=== PATIENT | female | born 1975 | race Caucasian/White ===

== ENCOUNTER 2017-04-26 09:55 | Emergency (ER) | payer BC ==
[~2017-04-26] VITALS: Ht 167.6 cm; Wt 81.6 kg
--- NOTE | 2017-04-26 10:18 | Urgent Treatment Center Report ---
History of Present Issue Date/Time Seen by Provider 04/26/17 1018 Visit Reason Pt arrived:Walked Presenting Problem:PT C/O NAUSEA AND CHEST CONGESTION ALONG WITH A RUBIO SINCE YESTERDAY Location if Accident: Onset of symptoms date/time:/ or onset unknown for:MEDICAL HX UNKNOWN Have you (or family members/close friends) recently traveled outside the [place]? N If Yes, where/when: Have you had exposure to infectious disease within the past month? TB? Other? Specify: c/o not feeling well. "Not sure if it is strep or not but my throat doesn't hurt and I don't have a fever". Woke up yesterday "just not feeling good". Sore throat and headache then. Sore throat has since resolved. Nausea, worse w/ movement. Achy throughout trunk, + chills. Mild intermittent cough "but I smoke and not sure if related to that because hasn't changed really". son tested + strep several days ago. pt reports hx of enlarged tonsils "but not sure how big ". No treatment since onset of symptoms. Source patient Exam Limitations no limitations ALLERGIES Coded Allergies: No Known Allergies (04/26/17) Home Medications Reported Medications No Known Home Medications History Medical History General CAD? No Angina: No [place]: No Hypertension? No Hyperlipidemia? No CHF? No DVT? No PE? No COPD? No Asthma? No Anemia? No GERD? No Gastric ulcers? No GI Bleed? No Hernia? No Thyroid Problems? No Hypothyroidism? No CVA? No Seizures? No Diabetes? No Renal Insuffiency? No UTI? No Stones? No BPH? No GB Disease: No Nephritic Syndrome? No Asplenia? No Hepatitis? No Sickle Cell Disease? No Arthritis? No Migraines? No Cataracts? No Glaucoma? No MRSA? No HIV? No TB? No Anxiety? No Depression? No Cancer? No More? No Immunization HX DT/Tetanus Unknown Surgical Hx Previous Surgery?Y CYST REMOVAL 2002 Family History Family HX Diabetes No CAD No Hypertension No Hyperlipidemia No Cancer Yes TB No Social History Smoking Hx Smoker: Current Every Day Smoker Tobacco: Yes Type Cigarettes Packs/day < 1 Pack Alcohol Alcohol: No Review of Systems All Other Systems Reviewed and Negative Constitutional see HPI Eyes denies drainage ENT see HPI, throat swelling ("but I can eat and drink"). denies: ear pain, nose discharge, nose congestion. Respiratory denies shortness of breath, denies stridor, denies wheezing Cardiovascular denies palpitations Gastrointestinal denies abdominal pain, denies diarrhea, denies vomiting Musculoskeletal see HPI Skin denies rash Psychiatric/Neurological see HPI Physical Exam Vital Signs Vital Signs Date Time Temp Pulse Resp B/P Pulse O2 O2 Flow FiO2 Ox Delivery Rate 04/26 1002 97.9 93 20 126/81 98 General Appearance normal appearance, no apparent distress Eye Exam - bilateral eye normal exam Ear, Nose, Throat tadeo EACs, TMs, nares all normal; tonsils 3+ tadeo w/o exudate of erythema, no pharyngeal erythema Neck normal inspection, non-tender, supple, full range of motion Respiratory Status No: respiratory distress, productive cough, non productive cough. Lung Sounds anterior: lungs clear. posterior: lungs clear. bilateral: lungs clear. Cardiovascular regular rate/rhythm, no peripheral edema, no murmur Gastrointestinal normal bowel sounds, non tender, soft Neurologic alert, oriented x 3 Skin normal color, warm/dry Lymphatic no adenopathy Medical Decision Making LABS/Meds/Orders Pt receiving controlled substance in ED? No Results/Orders Laboratory Tests 04/26/17 0951: Group A Strep Screen NOT DETECTED Current Medication Orders Sig/Jan Start time Last Medication Dose Route Stop Time Status Admin Ondansetron HCl 0 .STK-MED ONE 04/26 1037 DC .ROUTE Ondansetron HCl 4 MG ONCE ONE 04/26 1030 DC 04/26 SL 04/26 1031 1038 Orders Procedure Date/time Status [facility] STREP SCREEN 04/26 1031 Complete Progress [facility] Progress Notes 1 Date 04/26/17 Time 1107 Comment Went in to review discharge POC w/ pt. pt asked "so does this virus make your left arm and left side of your chest hurt?" Went on to further evaluate chest pain initially reports as "body aches in trunk". Started yesterday. Initially left upper arm. Radiating now to left anterior chest. Constant achy pressure, sharp at times. General malaise "that I just can't put my finger on". Nauseated, worse w/ movement. "I feel like i haven't slept in 3 days but it is weird, I have." Denies neck or jaw pain. Thought she felt palpitations yesterday but not sure. [facility] Progress Notes 2 Date 04/26/17 Time 1110 Comment Report called to RAMANA Lovelace RN. Sent to room 6 in ER. Departure Departure Time of Disposition 1110 Disposition Still a Patient Clinical Impression Primary Impression: Exposure to strep throat Condition STABLE Prescriptions Current Visit Scripts No Known Home Medications at 1112 in clinic. Discharge Counseling Counseled pt/family regarding diagnosis, test results, medications/RX, home care, follow up needs Prescriptions Current Visit Scripts No Known Home Medications
--- NOTE | 2017-04-26 10:18 | Urgent Treatment Center Report ---
History of Present Issue Date/Time Seen by Provider 04/26/17 1018 Visit Reason Pt arrived:Walked Presenting Problem:PT C/O NAUSEA AND CHEST CONGESTION ALONG WITH A RUBIO SINCE YESTERDAY Location if Accident: Onset of symptoms date/time:/ or onset unknown for:MEDICAL HX UNKNOWN Have you (or family members/close friends) recently traveled outside the [place]? N If Yes, where/when: Have you had exposure to infectious disease within the past month? TB? Other? Specify: c/o not feeling well. "Not sure if it is strep or not but my throat doesn't hurt and I don't have a fever". Woke up yesterday "just not feeling good". Sore throat and headache then. Sore throat has since resolved. Nausea, worse w/ movement. Achy throughout trunk, + chills. Mild intermittent cough "but I smoke and not sure if related to that because hasn't changed really". son tested + strep several days ago. pt reports hx of enlarged tonsils "but not sure how big ". No treatment since onset of symptoms. Source patient Exam Limitations no limitations ALLERGIES Coded Allergies: No Known Allergies (04/26/17) Home Medications Reported Medications No Known Home Medications History Medical History General CAD? No Angina: No [place]: No Hypertension? No Hyperlipidemia? No CHF? No DVT? No PE? No COPD? No Asthma? No Anemia? No GERD? No Gastric ulcers? No GI Bleed? No Hernia? No Thyroid Problems? No Hypothyroidism? No CVA? No Seizures? No Diabetes? No Renal Insuffiency? No UTI? No Stones? No BPH? No GB Disease: No Nephritic Syndrome? No Asplenia? No Hepatitis? No Sickle Cell Disease? No Arthritis? No Migraines? No Cataracts? No Glaucoma? No MRSA? No HIV? No TB? No Anxiety? No Depression? No Cancer? No More? No Immunization HX DT/Tetanus Unknown Surgical Hx Previous Surgery?Y CYST REMOVAL 2002 Family History Family HX Diabetes No CAD No Hypertension No Hyperlipidemia No Cancer Yes TB No Social History Smoking Hx Smoker: Current Every Day Smoker Tobacco: Yes Type Cigarettes Packs/day < 1 Pack Alcohol Alcohol: No Review of Systems All Other Systems Reviewed and Negative Constitutional see HPI Eyes denies drainage ENT see HPI, throat swelling ("but I can eat and drink"). denies: ear pain, nose discharge, nose congestion. Respiratory denies shortness of breath, denies stridor, denies wheezing Cardiovascular denies palpitations Gastrointestinal denies abdominal pain, denies diarrhea, denies vomiting Musculoskeletal see HPI Skin denies rash Psychiatric/Neurological see HPI Physical Exam Vital Signs Vital Signs Date Time Temp Pulse Resp B/P Pulse O2 O2 Flow FiO2 Ox Delivery Rate 04/26 1002 97.9 93 20 126/81 98 General Appearance normal appearance, no apparent distress Eye Exam - bilateral eye normal exam Ear, Nose, Throat tadeo EACs, TMs, nares all normal; tonsils 3+ tadeo w/o exudate of erythema, no pharyngeal erythema Neck normal inspection, non-tender, supple, full range of motion Respiratory Status No: respiratory distress, productive cough, non productive cough. Lung Sounds anterior: lungs clear. posterior: lungs clear. bilateral: lungs clear. Cardiovascular regular rate/rhythm, no peripheral edema, no murmur Gastrointestinal normal bowel sounds, non tender, soft Neurologic alert, oriented x 3 Skin normal color, warm/dry Lymphatic no adenopathy Medical Decision Making LABS/Meds/Orders Pt receiving controlled substance in ED? No Results/Orders Laboratory Tests 04/26/17 0951: Group A Strep Screen NOT DETECTED Current Medication Orders Sig/Jan Start time Last Medication Dose Route Stop Time Status Admin Ondansetron HCl 0 .STK-MED ONE 04/26 1037 DC .ROUTE Ondansetron HCl 4 MG ONCE ONE 04/26 1030 DC 04/26 SL 04/26 1031 1038 Orders Procedure Date/time Status [facility] STREP SCREEN 04/26 1031 Complete Progress [facility] Progress Notes 1 Date 04/26/17 Time 1107 Comment Went in to review discharge POC w/ pt. pt asked "so does this virus make your left arm and left side of your chest hurt?" Went on to further evaluate chest pain initially reports as "body aches in trunk". Started yesterday. Initially left upper arm. Radiating now to left anterior chest. Constant achy pressure, sharp at times. General malaise "that I just can't put my finger on". Nauseated, worse w/ movement. "I feel like i haven't slept in 3 days but it is weird, I have." Denies neck or jaw pain. Thought she felt palpitations yesterday but not sure. [facility] Progress Notes 2 Date 04/26/17 Time 1110 Comment Report called to RAMANA Lovelace RN. Sent to room 6 in ER. Departure Departure Time of Disposition 1110 Disposition Still a Patient Clinical Impression Primary Impression: Exposure to strep throat Condition STABLE Prescriptions Current Visit Scripts No Known Home Medications at 1112 in clinic. Discharge Counseling Counseled pt/family regarding diagnosis, test results, medications/RX, home care, follow up needs Prescriptions Current Visit Scripts No Known Home Medications
--- NOTE | 2017-04-26 11:40 | Emergency Room Report ---
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 N Clinical Suspician of Infection? N Mental Status: 1 - Regular (Normal Baseline) Sepsis Risk:Possible Sepsis Risk Have you (or family members/close friends) recently traveled outside the [place]? N If Yes, where/when: Have you had exposure to infectious disease within the past month? N TB? Other? Specify: 41 years old white female who woke up yesterday with sore throat. Today she is feeling chest congestion, headache, sense of chest pressure. He underwent a negative strep and a UTC and she was sent here for evaluation. Electrocardiogram sinus tach 10 2/m there is no acute findings. She is a smoker and she complained sense of chest heaviness that started yesterday radiating to the LEFT arm sharp in character and worse with deep breath and cough. Source patient, RN notes reviewed Exam Limitations no limitations ALLERGIES Coded Allergies: No Known Allergies (04/26/17) Home Medications Reported Medications No Known Home Medications History Medical History General CAD? No Angina: No [place]: No Hypertension? No Hyperlipidemia? No CHF? No DVT? No PE? No COPD? No Asthma? No Anemia? No GERD? No Gastric ulcers? No GI Bleed? No Hernia? No Thyroid Problems? No Hypothyroidism? No CVA? No Seizures? No Diabetes? No Renal Insuffiency? No End Stage Renal Disease? No UTI? No Stones? No BPH? No GB Disease: No Nephritic Syndrome? No Asplenia? No Hepatitis? No Sickle Cell Disease? No Arthritis? No Migraines? No Cataracts? No Glaucoma? No MRSA? No HIV? No TB? No Anxiety? No Depression? No Cancer? No More? No Immunization Hx DT/Tetanus Unknown Surgical Hx Previous Surgery?Y CYST REMOVAL 2002 [employer] Hx LMP N/A Family History Family Hx Diabetes No CAD No Hypertension No Hyperlipidemia No Cancer Yes TB No Social History Smoking Hx Smoker: Current Every Day Smoker Tobacco: Yes Type Cigarettes Packs/day < 1 Pack Alcohol Alcohol: No Review of Systems All Other Systems Reviewed and Negative Eyes no symptoms reported ENT see HPI, throat pain. Respiratory see HPI, cough Cardiovascular see HPI, chest pain Gastrointestinal see HPI, nausea Genitourinary no symptoms reported. Musculoskeletal see HPI Skin no symptoms reported Psychiatric/Neurological no symptoms reported Physical Exam Vital Signs Vital Signs Date Time Temp Pulse Resp B/P Pulse O2 O2 Flow FiO2 Ox Delivery Rate 04/26 1119 97.9 93 20 126/81 98 04/26 1002 97.9 93 20 126/81 98 General Appearance normal appearance, WD/WN Eye Exam - bilateral eye normal exam, bilateral eye PERRL, bilateral eye EOMI Ear, Nose, Throat hearing grossly normal, normal ENT inspection Neck normal inspection, non-tender, supple, full range of motion Respiratory Status Yes: trachea midline, chest symmetrical, non tender chest. No: respiratory distress. Lung Sounds bilateral: normal breath sounds, lungs clear. 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 No Results/Orders Laboratory Tests 04/26/17 1125: Sodium 137, Potassium 3.6, Chloride 104, Carbon Dioxide 25, BUN 7, Creatinine 0.8, Estimated Creat Clear 120, Estimated GFR (MDRD) 79, Glucose 98, Calcium 9.1 , Total Bilirubin 0.5, AST 13 L, ALT 31, Alkaline Phosphatase 107, Troponin I < 0.02, Total Protein 8.6 H, Albumin 4.2, Globulin 4.4 H, Albumin/Globulin Ratio 1.0 L, D-Dimer 115, WBC 11.3 H, RBC 4.87, Hgb 15.6, Hct 47.0, MCV 96.6, RDW 15.3, Plt Count 314, Gran % 69.0, Gran # 7.8, Lymphocytes % 27.3, Monocytes % 3.7, Lymphocytes # 3.1, Monocytes # 0.4, PUBS MCHC 33.2, MCH 32.0 H 04/26/17 0951: Group A Strep Screen NOT DETECTED Current Medication Orders Sig/Jan Start time Last Medication Dose Route Stop Time Status Admin Albuterol/Ipratropium 0 .STK-MED ONE 04/26 1201 DC INH Albuterol/Ipratropium 3 ML ONCE ONE 04/26 1145 DC 04/26 INH 04/26 1146 1202 Ondansetron HCl 0 .STK-MED ONE 04/26 1037 DC .ROUTE Ondansetron HCl 4 MG ONCE ONE 04/26 1030 DC 04/26 SL 04/26 1031 1038 Orders Procedure Date/time Status RT REQUEST DUONEB 04/26 1142 Active CHEST(2 VIEWS-NOT PORTABLE) 04/26 1142 Active TROPONIN I 04/26 1142 Complete D-DIMER 04/26 1142 Complete CBC WITH AUTO DIFF 04/26 1142 Complete CHEM 12 PROFILE 04/26 1142 Complete UTC STREP SCREEN 04/26 1031 Complete CM/EKG CM/EKG EKG sinus tachycardia 102/minutes, baseline artifacts, no acute findings. XRAY/CT/US XRAY/CT/US XRAY chest XR interpretation by reviewed by me Xray Results no infiltrates Departure Departure Time of Disposition 1228 Disposition DC/XFER from ER to [facility] Clinical Impression Primary Impression: Exposure to strep throat Secondary Impressions: Atypical chest pain, Cough, Tobacco use, Upper respiratory infection Condition STABLE Referrals Bishnu MARC,A.C. (Family) Additional Instructions The remianed stable and was chest pain free. I reviewed her labs she was negative troponin and dimer. she received a duoneb with improvement. I will start her on antibiotics and advised her for daily aspirin. I called [facility] hightower for out patient stress tomorrow with Dr Landry. The patietn was instructed if sx return to come back Discharge Counseling Counseled pt/family regarding diagnosis, test results, medications/RX, home care, follow up needs Prescriptions Current Visit Scripts Aspirin (Aspirin Ec) 325 MG PO DAILY #30 ECT Azithromycin (Zithromycin (Z-MARGAUX) 250MG Tab) 250 MG PO DAILY #6 TAB Benzonatate (Tessalon Perle) 100 MG PO Q4HP PRN cough #30 SGL ED Critical Care Critical Care No If Critical Care minutes are documented, the time involved in the performance of seperately reportable procedures was not counted toward critical care time documented. I directly delivered medical care to this critically ill and/or injured patient. Timely evaluation and treatment was necessary to address the significant organ system(s) dysfunction present in this patient. at 1234
[2017-04-26 11:51] LABS: HEMOGLOBIN 15.6 g/dL (12.2-16.2); LYMPH # 3.1 K/mm3 (0.7-4.5); LYMPH % 27.3 % (10-50.0)
[2017-04-26 11:59] LABS: BUN 7 mg/dL (7-18)
[2017-04-26 12:09] LABS: GFR (ESTIMATED) 79 ML/MIN (59-)
[2017-04-26] MEDS ORDERED: ZITHROMAX Z PA250 MG PO (12:33)
[2017-04-26] MEDS ORDERED: ASPIRIN EC325 M1 PO (12:33)
[2017-04-26] MEDS ORDERED: TESSALON PERLE100 M1 PO (12:33)
[2017-04-26 14:09] VITALS: BP 123/67
--- NOTE | 2017-04-26 16:06 | RADIOLOGY REPORT PS360 ---
CHEST(2 VIEWS-NOT PORTABLE) HISTORY: Chest pain and cough cp and couph ORDERING PHYSICIAN: Emily Coats MD PATIENT AGE: 41 years COMPARISON: None available FINDINGS: The cardiomediastinal silhouette and pulmonary vascularity are within normal limits. The lungs are clear without infiltrates, suspicious nodules, or pleural effusions. No acute bony abnormalities. IMPRESSION: Negative chest, no acute finding
== END 2017-04-26 14:10 | disposition home or self-care (01) ==
LOC: UTC 09:55 → ER 09:58 → UTC 09:58 → ER 09:58
PROVIDERS: Emergency Medicine
DX: R07.89 Other chest pain (principal); J06.9 Acute upper respiratory infection, unspecified; F17.210 Nicotine dependence, cigarettes, uncomplicated

== ENCOUNTER → 2017-04-27 | Outpatient (CLI) | payer BC | LOC: RT 08:00 | DX: R07.9 Chest pain, unspecified (principal) ==

== ENCOUNTER → 2017-04-30 | Outpatient (CLI) | payer BC | LOC: LAB 11:11 | DX: R07.9 Chest pain, unspecified (principal); R11.0 Nausea ==

== ENCOUNTER 2017-05-08 22:37 | Observation (INO) | payer BC ==
[~2017-05-08] VITALS: Ht 167.6 cm; Wt 82.6 kg
[~2017-05-08 22:37] MED LIST: ASPIRIN EC325 M1 PO; TESSALON PERLE100 M1 PO; ZITHROMAX Z PA250 MG PO
[2017-05-08 22:38] VITALS: BP 155/95
[2017-05-08] MEDS ORDERED: AMLO5TAB PO (22:47)
[2017-05-08 22:51] LABS: LYMPH # 3.8 K/mm3 (0.7-4.5); LYMPH % 34.9 % (10-50.0)
--- NOTE | 2017-05-08 22:51 | Emergency Room Report ---
See Addendum History of Present Illness Time Seen by [id number] Presenting Problem in Triage Pt arrived:Walked Presenting Problem:C/O LEFT CHEST PAIN ON AND OFF X [address] WEEK. WAS SEEN BY DR ARELLANO LAST WEEK AND STARTED ON AMLODIPINE. MARIA D HAS CHEST PAIN, NAUSEA NEAR SYNCOPAL EPISODE TO HAVE CORONARY CT AND ECHO ON SUNDAY AND SUNDAY Onset of symptoms date/time:/ or onset unknown for:MEDICAL HX UNKNOWN Treatment Prior to Arrival: SEEN BY KATHY OROURKE APRN AND DR ARELLANO KITCHEN HAND Provided by:PHYSICIAN Sepsis Risk Assessment: Temp: 98.8 B/P: 126/85 MAP: 115 Pulse: 93 Resp: 20 Recent fever? N Clinical Suspician of Infection? N Mental Status: 1 - Regular (Normal Baseline) Sepsis Risk:Possible Sepsis Risk Have you (or family members/close friends) recently traveled outside the [place]? N If Yes, where/when: Have you had exposure to infectious disease within the past month? N TB? Other? Specify: Source patient, RN notes reviewed, family, old records Exam Limitations no limitations Comment pt with episodes of chest pain which is described as pressure- she has seen pcp and card with gxt ok but has inc episodes of pain with pos fh and tob use - episodes at rest and with slight exertion Cardiac Chest Pain Chest pain indicative of cardiac Yes Timing/Duration 1-3 hours, intermittent Severity/Quality moderate, pressure Location central Chest Pain Radiation no radiation Activities at Onset strenuous activity Nitro Today/Relief no nitro taken today, provided at home Aspirin Treatment Today 325 mg x 1 Beta ryder treatment today no beta ryder taken Cardiac risk factors + cardiovascular disease, + family history Timing/Duration this evening Severity moderate ALLERGIES Coded Allergies: No Known Allergies (04/26/17) Home Medications Active Scripts Aspirin (Aspirin Ec) 325 MG PO DAILY #30 ECT Prov: 04/26/17 Reported Medications Amlodipine Besylate (Amlodipine) 5 MG PO DAILY History Medical History General CAD? No Angina: No [place]: No Hypertension? No Hyperlipidemia? No CHF? No DVT? No PE? No COPD? No Asthma? No Anemia? No GERD? No Gastric ulcers? No GI Bleed? No Hernia? No Thyroid Problems? No Hypothyroidism? No CVA? No Seizures? No Diabetes? No Renal Insuffiency? No End Stage Renal Disease? No UTI? No Stones? No BPH? No GB Disease: No Nephritic Syndrome? No Asplenia? No Hepatitis? No Sickle Cell Disease? No Arthritis? No Migraines? No Cataracts? No Glaucoma? No MRSA? No HIV? No TB? No Anxiety? No Depression? No Cancer? No More? No Immunization Hx DT/Tetanus Unknown Surgical Hx Previous Surgery?Y CYST REMOVAL 2002 D AND C [employer] Hx LMP 1 Week Ago Family History Family Hx Diabetes No CAD No Hypertension No Hyperlipidemia No Cancer Yes TB No Social History Smoking Hx Smoker: Current Every Day Smoker Tobacco: Yes Type Cigarettes Packs/day < 1 Pack Alcohol Alcohol: No Drugs none Review of Systems All Other Systems Reviewed and Negative Constitutional denies fever Eyes denies drainage ENT denies: ear pain, epistaxis, throat pain. Respiratory denies cough, denies shortness of breath, denies wheezing Cardiovascular denies chest pain, denies syncope Gastrointestinal denies abdominal pain, denies vomiting Genitourinary denies: dysuria, frequency, hesitancy, hematuria. Musculoskeletal denies back pain, denies joint pain, denies joint swelling, denies neck pain Skin denies rash Psychiatric/Neurological denies headache, denies seizure Physical Exam Vital Signs Vital Signs Date Time Temp Pulse Resp B/P Pulse O2 O2 Flow FiO2 Ox Delivery Rate 05/08 2333 98.2 77 20 121/50 98 05/08 2248 98.8 93 20 126/85 100 05/08 2238 98.8 110 20 155/95 100 - WBC >12,000 or <4,000 or 10% bands? 2 or more SIRS Criteria Met? B/P:121/50 MAP:115 Creatinine >2.0? UA output<0.5ml/kg/hr for 2 hrs? Platelet count >100,000? Lactate >2.0mmol/1? INR >1.2 or PTT > than 60 sec? Evidence of Organ Dysfunction? Provider documented clinical suspician of infection? N Sepsis Criteria Count: 2 Sepsis Risk: General Appearance no apparent distress Eye Exam - bilateral eye PERRL, bilateral eye EOMI Ear, Nose, Throat normal ENT inspection Neck supple Respiratory Status No: respiratory distress. Lung Sounds bilateral: lungs clear. 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 No Results/Orders Laboratory Tests 05/08/170: Sodium 139, Potassium 3.7, Chloride 101, Carbon Dioxide 28, BUN 12, Creatinine 0.9, Estimated Creat Clear 107, Estimated GFR (MDRD) 69, Glucose 95, Calcium 9.7 , Total Bilirubin 0.3, AST 12 L, ALT 26, Alkaline Phosphatase 115, Creatine Kinase 60, CK-MB (CK-2) Rel Index 0.8, CK and CKMB Interp < 0.5, Troponin I < 0.02, Total Protein 8.4 H, Albumin 4.2, Globulin 4.2 H, Albumin/Globulin Ratio 1.0 L, WBC 11.0 H, RBC 4.62, Hgb 15.0, Hct 43.7, MCV 94.6, RDW 12.7, Plt Count 355, MPV 7.8, Gran % 57.8, Gran # 6.4, Lymphocytes % 34.9, Monocytes % 5.2, Eosinophils % 1.4, Basophils % 0.8, Lymphocytes # 3.8, Monocytes # 0.6, Eosinophils # 0.2, Basophils # 0.1, PUBS MCHC 34.5, MCH 32.6 H Current Medication Orders Sig/Jan Start time Last Medication Dose Route Stop Time Status Admin Nitroglycerin 0 .STK-MED ONE 05/08 2352 DC .ROUTE Orders Procedure Date/time Status Decision to admit 05/08 2353 Active ELECTROCARDIOGRAM REQUEST 05/08 2242 Active IV SALINE LOCK 05/08 2242 Active BUSINESS PROCESS EXPERT 05/08 2242 Active CBC WITH AUTO DIFF 05/08 2242 Complete CARDIAC ENZYMES 05/08 2242 Complete CHEM 12 PROFILE 05/08 2242 Complete 12 LEAD EKG-KADEN (INITIAL) 05/08 UN Active CM/EKG CM/oil gauger Rhythm Sinus Tachycardia EKG compared w/(date of old), non-spec. ST/Twave chgs XRAY/CT/US XRAY/CT/US XRAY chest XR interpretation by reviewed by me Xray Results normal/NAD Departure Departure Time of Disposition 0005 Disposition Still a Patient Clinical Impression Primary Impression: Chest pain Qualifiers: Chest pain type: precordial pain Qualified Code: R07.2 - Precordial pain Condition STABLE Referrals Toya Goetz MD. discussed with dr arellano ED Critical Care Critical Care No at 0014
--- NOTE | 2017-05-08 22:51 | Emergency Room Report ---
See Addendum History of Present Illness Time Seen by [id number] Presenting Problem in Triage Pt arrived:Walked Presenting Problem:C/O LEFT CHEST PAIN ON AND OFF X 1 WEEK. WAS SEEN BY [address] ARELLANO LAST WEEK AND STARTED ON AMLODIPINE. MARIA D HAS CHEST PAIN, NAUSEA NEAR SYNCOPAL EPISODE TO HAVE CORONARY CT AND ECHO ON SUNDAY AND SUNDAY Onset of symptoms date/time:/ or onset unknown for:MEDICAL HX UNKNOWN Treatment Prior to Arrival: SEEN BY KATHY OROURKE APRN AND DR ARELLANO GRIDDLE ATTENDANT Provided by:PHYSICIAN Sepsis Risk Assessment: Temp: 98.8 B/P: 126/85 MAP: 115 Pulse: 93 Resp: 20 Recent fever? N Clinical Suspician of Infection? N Mental Status: 1 - Regular (Normal Baseline) Sepsis Risk:Possible Sepsis Risk Have you (or family members/close friends) recently traveled outside the [place]? N If Yes, where/when: Have you had exposure to infectious disease within the past month? N TB? Other? Specify: Source patient, RN notes reviewed, family, old records Exam Limitations no limitations Comment pt with episodes of chest pain which is described as pressure- she has seen pcp and card with gxt ok but has inc episodes of pain with pos fh and tob use - episodes at rest and with slight exertion Cardiac Chest Pain Chest pain indicative of cardiac Yes Timing/Duration 1-3 hours, intermittent Severity/Quality moderate, pressure Location central Chest Pain Radiation no radiation Activities at Onset strenuous activity Nitro Today/Relief no nitro taken today, provided at home Aspirin Treatment Today 325 mg x 1 Beta ryder treatment today no beta ryder taken Cardiac risk factors + cardiovascular disease, + family history Timing/Duration this evening Severity moderate ALLERGIES Coded Allergies: No Known Allergies (04/26/17) Home Medications Active Scripts Aspirin (Aspirin Ec) 325 MG PO DAILY #30 ECT Prov: 04/26/17 Reported Medications Amlodipine Besylate (Amlodipine) 5 MG PO DAILY History Medical History General CAD? No Angina: No AR: No Hypertension? No Hyperlipidemia? No CHF? No DVT? No PE? No COPD? No Asthma? No Anemia? No GERD? No Gastric ulcers? No GI Bleed? No Hernia? No Thyroid Problems? No Hypothyroidism? No CVA? No Seizures? No Diabetes? No Renal Insuffiency? No End Stage Renal Disease? No UTI? No Stones? No BPH? No GB Disease: No Nephritic Syndrome? No Asplenia? No Hepatitis? No Sickle Cell Disease? No Arthritis? No Migraines? No Cataracts? No Glaucoma? No MRSA? No HIV? No TB? No Anxiety? No Depression? No Cancer? No More? 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 Respiratory denies cough, denies shortness of breath, denies wheezing Cardiovascular denies chest pain, denies syncope Gastrointestinal denies abdominal pain, denies vomiting Genitourinary denies: dysuria, frequency, hesitancy, hematuria. Musculoskeletal denies back pain, denies joint pain, denies joint swelling, denies neck pain Skin denies rash Psychiatric/Neurological denies headache, denies seizure Physical Exam Vital Signs Vital Signs Date Time Temp Pulse Resp B/P Pulse O2 O2 Flow FiO2 Ox Delivery Rate 05/08 2333 98.2 77 20 121/50 98 05/08 2248 98.8 93 20 126/85 100 05/08 2238 98.8 110 20 155/95 100 - WBC >12,000 or <4,000 or 10% bands? 2 or more SIRS Criteria Met? B/P:121/50 MAP:115 Creatinine >2.0? UA output<0.5ml/kg/hr for 2 hrs? Platelet count >100,000? Lactate >2.0mmol/1? INR >1.2 or PTT > than 60 sec? Evidence of Organ Dysfunction? Provider documented clinical suspician of infection? N Sepsis Criteria Count: 2 Sepsis Risk: General Appearance no apparent distress Eye Exam - bilateral eye PERRL, bilateral eye EOMI Ear, Nose, Throat normal ENT inspection Neck supple Respiratory Status No: respiratory distress. Lung Sounds bilateral: lungs clear. 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 No Results/Orders Laboratory Tests 05/08/170: Sodium 139, Potassium 3.7, Chloride 101, Carbon Dioxide 28, BUN 12, Creatinine 0.9, Estimated Creat Clear 107, Estimated GFR (MDRD) 69, Glucose 95, Calcium 9.7 , Total Bilirubin 0.3, AST 12 L, ALT 26, Alkaline Phosphatase 115, Creatine Kinase 60, CK-MB (CK-2) Rel Index 0.8, CK and CKMB Interp < 0.5, Troponin I < 0.02, Total Protein 8.4 H, Albumin 4.2, Globulin 4.2 H, Albumin/Globulin Ratio 1.0 L, WBC 11.0 H, RBC 4.62, Hgb 15.0, Hct 43.7, MCV 94.6, RDW 12.7, Plt Count 355, MPV 7.8, Gran % 57.8, Gran # 6.4, Lymphocytes % 34.9, Monocytes % 5.2, Eosinophils % 1.4, Basophils % 0.8, Lymphocytes # 3.8, Monocytes # 0.6, Eosinophils # 0.2, Basophils # 0.1, PUBS MCHC 34.5, MCH 32.6 H Current Medication Orders Sig/Jan Start time Last Medication Dose Route Stop Time Status Admin Nitroglycerin 0 .STK-MED ONE 05/08 2352 DC .ROUTE Orders Procedure Date/time Status Decision to admit 05/08 2353 Active ELECTROCARDIOGRAM REQUEST 05/08 2242 Active IV SALINE LOCK 05/08 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 ST/Twave chgs XRAY/CT/US XRAY/CT/US XRAY chest XR interpretation by reviewed by me Xray Results normal/NAD Departure Departure Time of Disposition 0005 Disposition Still a Patient Clinical Impression Primary Impression: Chest pain Qualifiers: Chest pain type: precordial pain Qualified Code: R07.2 - Precordial pain Condition STABLE Referrals Toya Goetz MD. discussed with dr arellano ED Critical Care Critical Care No at 001
[2017-05-08 23:18] LABS: BUN 12 mg/dL (7-18)
--- NOTE | 2017-05-08 23:18 | RADIOLOGY REPORT PS360 ---
CHEST(2 VIEWS-NOT PORTABLE) HISTORY: Chest pain CP ORDERING PHYSICIAN: Leah Hernandez MD PATIENT AGE: 41 years COMPARISON: None available FINDINGS: The cardiomediastinal silhouette and pulmonary vascularity are within normal limits. The lungs are clear without infiltrates, suspicious nodules, or pleural effusions. No acute bony abnormalities. IMPRESSION: No change with no acute finding
[2017-05-08 23:19] LABS: GFR (ESTIMATED) 69 ML/MIN (59-)
[2017-05-09] VITALS (12 sets, daily range): BP systolic 77–107; BP diastolic 43–68
[2017-05-09] MEDS ORDERED: ASPIRIN CHILDRE81 M1 PO (01:28)
--- NOTE | 2017-05-09 06:36 | HISTORY AND PHYSICAL REPORT ---
Demographics: Admit date: 05/07/17 Chief complaint: Chest pain PRIMARY DIAGNOSIS: atypical chest pain Allergies: Coded Allergies: No Known Allergies (04/26/17) History of present illness: History of present illness: 41-year-old female presented to the emergency department for the second time in a little over 2 weeks with complaints of chest discomfort. Her episode yesterday occurred while [place]. Patient describes onset of nausea first followed by chest discomfort and sensation as if she could not catch her breath. She felt like her heart was racing and she was brought to the emergency department. Electrocardiogram and enzymes in the emergency department were negative. This is now the patient's fifth visit with a medical provider for chest discomfort in the last 2 weeks. ER physician spoke with Dr. Landry and patient has been admitted for cardiology consultation. Patient tells me discussion about catheterization was had. She describes the pain as occurring at rest and lasting for anywhere from 1-20 minutes. Pain does not have any aggravating or alleviating factors. Sometimes it will occur after meals. Sometimes it occurs when she lays down. Patient's episodes of chest discomfort started nearly 2 weeks ago. She first presented to the urgent treatment clinic with chest congestion and chest tightness. Patient was sent from urgent treatment clinic to the ER that night because she complained of LEFT chest tightness that radiated into the LEFT arm. Patient indicates to me the area of pain wasn't near the LEFT shoulder. She was treated and discharged from the emergency department. The following day when she had the chest discomfort again she went to [facility] where she was also treated and released. On May 08 she was seen as an outpatient in my office. On May 01 she was seen by Dr. Landry and started on amlodipine with testing scheduled of treadmill stress test, echocardiogram, cardiac CT. Patient underwent her cardiac stress test and had no electrocardiogram abnormalities and met protocol for sufficient stress test. Patient states she "just wants to find out what's going on ". She apparently has missed several days of work because of this. Past medical history: Family HX Family Hx Insignificant No Diabetes No CAD No Hypertension No Hyperlipidemia No Cancer Yes TB No Immunization HX DT/Tetanus Unknown Flu Refused Pneumonia Never Had TB Test in last year No General CAD? No Angina: No [place]: No Hypertension? No Hyperlipidemia? No CHF? No DVT? No PE? No COPD? No Asthma? No Anemia? No GERD? No Gastric ulcers? No GI Bleed? No Hernia? No Thyroid Problems? No Hypothyroidism? No CVA? No Seizures? No Diabetes? No Renal Insuffiency? No UTI? No Stones? No BPH? No GB Disease: No Nephritic Syndrome? No Asplenia? No Hepatitis? No Sickle Cell Disease? No Arthritis? No Migraines? No Cataracts? No Glaucoma? No MRSA? No HIV? No TB? No Anxiety? No Depression? No Cancer? No More? No Past Surgical HX Previous Surgery?Y CYST REMOVAL 2002 D AND C Current home meds: Reported Medications Aspirin 81 MG PO DAILY Amlodipine Besylate (Amlodipine) 5 MG PO DAILY Social Hx: Smoking HX Tobacco Yes Type Cigarettes Packs/day < 1 PACK Alcohol Alcohol: No Hx of Drug Use Drug Use? No Review of systems: Constitutional no symptoms reported. Respiratory see HPI. Cardiovascular see HPI Gastrointestinal/Abdominal see HPI Genitourinary no symptoms reported. Musculoskeletal see HPI. Neurological Yes: no symptoms reported. Exam: Lab data for last 24 hours: Laboratory Tests 05/08/17 2240: Sodium 139, Potassium 3.7, Chloride 101, Carbon Dioxide 28, BUN 12, Creatinine 0.9, Estimated Creat Clear 107, Estimated GFR (MDRD) 69, Glucose 95, Calcium 9.7 , Total Bilirubin 0.3, AST 12 L, ALT 26, Alkaline Phosphatase 115, Creatine Kinase 60, CK-MB (CK-2) Rel Index 0.8, CK and CKMB Interp < 0.5, Troponin I < 0.02, Total Protein 8.4 H, Albumin 4.2, Globulin 4.2 H, Albumin/Globulin Ratio 1.0 L, WBC 11.0 H, RBC 4.62, Hgb 15.0, Hct 43.7, MCV 94.6, RDW 12.7, Plt Count 355, MPV 7.8, Gran % 57.8, Gran # 6.4, Lymphocytes % 34.9, Monocytes % 5.2, Eosinophils % 1.4, Basophils % 0.8, Lymphocytes # 3.8, Monocytes # 0.6, Eosinophils # 0.2, Basophils # 0.1, PUBS MCHC 34.5, MCH 32.6 H Admission vital signs: 1ST Vital Signs Result Date Time Pulse Ox 100 05/088 B/P 155/95 05/08 2238 Temp 98.8 05/08 2238 Pulse 110 05/08 2238 Resp 20 05/08 2238 O2 Delivery ROOM AIR 05/09 011 Exam General appearance: normal appearance, alert, awake Eyes: normal exam, anicteric ENT: normal exam, mucous membranes moist Neck: normal inspection, non-tender, no carotid bruit, no JVD Cardiovascular: normal exam Respiratory: normal exam, clear to auscultation ABD: normal exam, non-distended, normal bowel sounds Plan: Problem List 1. Atypical chest pain 2. Tobacco use Plan: Patient is ruled out for myocardial infarction. Await cardiology consultation. Patient will be started on PPI when she is ready for discharge. at 0642
[2017-05-09] MEDS ORDERED: GOOD NEIGHBOR P20 M1 PO (06:43)
--- NOTE | 2017-05-09 06:43 | Discharge Summary ---
Demographics Admit date: 05/08/17 Discharge date: 05/09/17 Discharge diagnoses Problem List 1. Atypical chest pain 2. Tobacco use History of present illness History of present illness 41-year-old female presented to the emergency department for the second time in a little over 2 weeks with complaints of chest discomfort. Her episode yesterday occurred while she was sitting at a bowling alley. Patient describes onset of nausea first followed by chest discomfort and sensation as if she could not catch her breath. She felt like her heart was racing and she was brought to the emergency department. Electrocardiogram and enzymes in the emergency department were negative. This is now the patient's fifth visit with a medical provider for chest discomfort in the last 2 weeks. ER physician spoke with Dr. Landry and patient has been admitted for cardiology consultation. Patient tells me discussion about catheterization was had. She describes the pain as occurring at rest and lasting for anywhere from 1-20 minutes. Pain does not have any aggravating or alleviating factors. Sometimes it will occur after meals. Sometimes it occurs when she lays down. Patient's episodes of chest discomfort started nearly 2 weeks ago. She first presented to the urgent treatment clinic with chest congestion and chest tightness. Patient was sent from urgent treatment clinic to the ER that night because she complained of LEFT chest tightness that radiated into the LEFT arm. Patient indicates to me the area of pain wasn't near the LEFT shoulder. She was treated and discharged from the emergency department. The following day when she had the chest discomfort again she went to [facility] where she was also treated and released. On May 08 she was seen as an outpatient in my office. On May 01 she was seen by Dr. Landry and started on amlodipine with testing scheduled of treadmill stress test, echocardiogram, cardiac CT. Patient underwent her cardiac stress test and had no electrocardiogram abnormalities and met protocol for sufficient stress test. Patient states she "just wants to find out what's going on ". She apparently has missed several days of work because of this. Patient was admitted. Ruled out for myocardial infarction. Underwent cardiac catheterization on May 09. She did not have any obstructive coronary artery disease. After completing the post procedural protocol Patient was discharged to home and she will follow-up in the office in 10 days with my nurse practitioner Rosie Anguiano Medications Medications: Discharge meds are as noted. Follow up Follow up in office in: 10 DAYS with: Kendy Multani at 0715
--- NOTE | 2017-05-09 07:24 | PHARMACY CLINIC NOTE ---
Patient Demographics Patient Demographics Admission date: 05/09/17 Date: 05/09/17 Time: 07 Allergies Coded Allergies: No Known Allergies (04/26/17) HEIGHT- FT: 5 IN: 6.00 K.555 VTE General Information Labs: Laboratory Tests 05/08 2240 Hematology Hgb (12.2 - 16.2 g/dL) 15.0 Hct (37.0 - 47.0 %) 43.7 Plt Count (142 - 424 K/mm3) 355 Disclaimer The following section includes nursing documentation that has been pulled in for pharmacy review. Patient's VTE score: 1 Patient's VTE Risk: VERY LOW RISK Clinical trial participant? No VTE prophylaxis [id number] VTE prophylaxis ordered? Yes Type of prophylaxis/treatment: DANIEL at 0723
--- NOTE | 2017-05-09 11:32 | CONSULT NOTE ---
Standard Demographics Patient Demo Date of Consultation: 05/09/17 Referring Provider: Femi Tabor MD Reason for Consultation: chest pain PRIMARY DIAGNOSIS: atypical chest pain Problem list Problem list: Angina pectoris, class 3-4 Family history of ischemic heart disease Tobacco user Abnormal EKG History of present illness: History of present illness: This is a 41 year old patient who was admitted for CP. She has been tot he ER twice within the last 2 weeks with CP. She has also been to the [facility]gent [facility], PCP and Cardiology clinic within the last 2 weeks. She has been seen on 5 occasions within the last 2 weeks with CP. She states this is a sharp, pressure sensation in the center of the chest. Radiates ot the left arm. Associated with SOB, nausea and dizziness. She states Pain lasts about 20 min. She states that she just does not feel right. The pain is severe. Occurs with exertion and at rest. worse with exertion. nothing improves the CP. She states that she is constantly having to miss work due to the CP. No fever, chills, vomiting, diarrhea, PND or orthopnea. pt had a recent normal stress test. she has been started on amlodipine. BP will not support any other ant-anginals. CTA chest of coronary arteries set up for tomorrow. Past Medical History: General: Hypertension No CVA No Seizures No TB No COPD No Asthma No Diabetes No Angina No SD No Hyperlipidemia No Urinary No Cancer No Rheumatic H.D. No Ulcers No MRSA No GB Disease No Past Surgical HX: Previous Surgery?Y CYST REMOVAL 2002 D AND C Allergies Coded Allergies: No Known Allergies (04/26/17) Home medications: Reported Medications Aspirin 81 MG PO DAILY Amlodipine Besylate (Amlodipine) 5 MG PO DAILY Current Medications: Current Medications Diphenhydramine HCl 50 MG ONCE ONE IV (DC) Fentanyl Citrate 25 MCG PRN PRN IV Fentanyl Citrate 50 MCG PRN PRN IV Flumazenil 0.2 MG PRN PRN IV Heparin Sodium (Beef Lung) 5,000 UNITS PRN PRN IV Heparin Sodium/Sodium Chloride 3,000 UNITS PRN PRN IV Lidocaine HCl 20 ML ONCE ONE IJ (DC) Midazolam HCl 1 MG PRN PRN IV Midazolam HCl 1 MG PRN PRN IV Naloxone HCl 0.4 MG [id number] PRN IV Nitroglycerin 800 MCG PRN PRN IV Sodium Chloride 10 ML PRN PRN IV (DC) Sodium Chloride 1,000 ML .Q25H IV Verapamil HCl 5 MG PRN PRN IV Diphenhydramine HCl 50 MG ONCE ONE IV (DC) Amlodipine Besylate 5 MG DAILY PO Aspirin 325 MG DAILY PO Sodium Chloride 10 ML PRN PRN IV Acetaminophen 650 MG Q4HP PRN PO Influenza Virus Vaccine Quadrival 0.5 ML PRN PRN IM Nicotine 21 MG DAILYP PRN TD Ondansetron HCl 4 MG Q6HP PRN IV Sodium Chloride 1,000 ML .[id number] IV Nitroglycerin 0 .STK-MED ONE .ROUTE (DC) Immunization HX DT/Tetanus Unknown Flu Refused Pneumonia Never Had TB Test in last year No Family history Family HX Diabetes No CAD Yes Hypertension No Hyperlipidemia No Cancer Yes TB No Comment Maternal and paternal grandfathers had SD. Social Hx: Smoking HX Tobacco Yes Type Cigarettes Packs/day < 1 PACK Alcohol Alcohol: No Hx of Drug Use Drug Use? No Patien't marital status is Patient's support system is good Review of systems: Constitutional No: chills, diaphoresis, fever, malaise, weakness, other. Eyes No: blindness, blurred vision, drainage, decreased acuity, foreign body sensation, inflammation, pain, photophobia, previous injury, shadows, tunnel vision, vision change, contact lenses, glasses, other. Ears, Nose, Mouth, Throat No ear pain, No ear discharge, No nose pain, No drooling/excessive saliva, No nose discharge, No nose congestion, No epistaxis, No mouth pain, No mouth swelling, No tongue swelling, No dental caries, No loose teeth, No missing teeth , No throat pain, No throat swelling, No other Respiratory shortness of breath, SOB with excertion. No: cough, orthopnea, SOB at rest, stridor, wheezing, other. Cardiovascular chest pain, No edema, No palpitations, No syncope, No other Gastrointestinal/Abdominal No abdomen distended, No abdominal pain, No blood streaked bowels, No constipated, No diarrhea, No difficulty swallowing, nausea, No poor appetite, No poor fluid intake, No rectal bleeding, No vomiting, No other Genitourinary No: discharge, abnormal vaginal bleeding, normal menstrual period, vaginal discharge, dysuria, frequency, hesitancy, hematuria, dyspareunia, pain, penis pain, pelvic pain, scrotal/testicular pain, hx stds, genital lesions, other, , labia tenderness, penis tenderness, scrotal tenderness. Musculoskeletal No: back pain, gout, joint pain, joint swelling, muscle pain, muscle stiffness, neck pain, other. Skin No: change in color, change in hair/nails, dryness, lesions, lumps, rash, other. Neurological No: headache, numbness, tingling, tremors, weakness, parasthesia, seizure disorder. Psychiatric No: anxious, depressed, other, withdrawn. Exam: Admission Vital Signs: 1ST Vital Signs Result Date Time Pulse Ox 100 05/08 2238 B/P 155/95 05/08 2238 Temp 98.8 05/08 2238 Pulse 110 05/08 2238 Resp 20 05/08 2238 O2 Delivery ROOM AIR 05/09 0111 Last Vital Signs: Vital Signs Result Date Time Pulse Ox 97 05/09 832 B/P 99/61 05/09 832 Temp 98.3 05/09 832 Pulse 69 05/09 832 Resp 18 05/09 832 O2 Delivery ROOM AIR 05/09 0754 Exam General appearance: normal appearance, alert, active, awake, face symmetric, no acute distress, well-developed, well-nourished Eyes: normal exam, anicteric, conjunctiva clear, PERRLA, sclera clear ENT: normal exam, mucous membranes moist, nose normal, pharynx normal Neck: normal inspection, non-tender, no carotid bruit, no JVD, full range of motion, range of motion, supple Cardiovascular: normal exam, no JVD, no ectopics, normal sinus rhythm, PMI normal, regular rate & rhythm, no murmur, normal peripheral pulses, no peripheral edema Respiratory: normal exam, aerating well, clear to auscultation, chest non- tender, good air movement, normal breath sounds, no respiratory distress ABD: normal exam, non-distended, normal bowel sounds, no rebound, soft, no tenderness, no guarding, no organomegaly, no palpable mass Extremities: normal exam, full range of motion, moves all, normal capillary refill, no peripheral edema, femoral pulses (present), warm, pedal pulses ( present) Musculoskeletal: normal exam, equal muscle strength, motor intact, normal gait, sensation intact Skin: normal exam, dry, intact, normal color, no gross abnormalities, warm Neuro: normal exam, 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, 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, intact, no deficit, normal mood/affect, oriented, speech clear Laboratory data: Laboratory Tests 05/09/17 0645: Troponin I < 0.02 05/08/17 2240: Sodium 139, Potassium 3.7, Chloride 101, Carbon Dioxide 28, BUN 12, Creatinine 0.9, Estimated Creat Clear 107, Estimated GFR (MDRD) 69, Glucose 95, Calcium 9.7 , Total Bilirubin 0.3, AST 12 L, ALT 26, Alkaline Phosphatase 115, Creatine Kinase 60, CK-MB (CK-2) Rel Index 0.8, CK and CKMB Interp < 0.5, Troponin I < 0.02, Total Protein 8.4 H, Albumin 4.2, Globulin 4.2 H, Albumin/Globulin Ratio 1.0 L, WBC 11.0 H, RBC 4.62, Hgb 15.0, Hct 43.7, MCV 94.6, RDW 12.7, Plt Count 355, MPV 7.8, Gran % 57.8, Gran # 6.4, Lymphocytes % 34.9, Monocytes % 5.2, Eosinophils % 1.4, Basophils % 0.8, Lymphocytes # 3.8, Monocytes # 0.6, Eosinophils # 0.2, Basophils # 0.1, PUBS MCHC 34.5, MCH 32.6 H Additional information: EKG is SR with nonspecific ST/TWA Plan: Assessment: Impression: [place] HTN Abnormal EKG Tobacco user Family history of ischemic heart disease Recommendations: Plan: 1. pt admitted with CP. She is having symptoms consistent with [place]. Pt is a tobacco user. has nonspecific EKG changes. Family history of ischemic heart disease. She has had 5 visits to providers in the last 2 weeks with complaints of CP that continue to worsen. Will proceed with LHC with R radial access. 2. Pt educated on the risks and benefits of LHC. Pt verbalized understanding and is agreeable in proceeding with LHC. 3. NPO 4. Echo 5. BP is well controlled. 6. LDL goal is < 100. 7. Tobacco cessaton is advised and counseled. 8. further recommendations pending the pt's response to treatment and the results of LHC today. Thank you for opportunity to help participate in the care of this patient. at 1135
--- NOTE | 2017-05-09 13:16 | RADIOLOGY REPORT PS360 ---
CARDIAC CATHETERIZATION DATE OF CATHETERIZATION:05/09/2017 11:45 AM PROCEDURES: 1. Left heart catheterization 2. Left ventriculogram 3. Selective coronary angiogram INDICATION FOR TEST: 1. Unstable angina Clinical history: 41-year-old lady with long history of tobacco abuse who has now been evaluated 5 times in the last 2 weeks for recurrent chest pain. Patient was initially seen and underwent stress testing which was normal. She has been seen here in the hospital twice in the last week and now admitted. When evaluated this morning patient was having active chest heaviness and pressure. Both the patient and her family refused to leave the hospital and less her chest pain resolved or answers were given as to the etiology. This lady is under a lot of stress she was having classic angina spite having negative troponins in a normal stress test. She was scheduled for a coronary artery CTA later this week however given her chest heaviness as if some of her sitting on her chest this morning, I decided to proceed with left heart catheterization although I felt the overall healed was relatively low for having a fixed coronary artery lesion. Nevertheless I did speak with her primary care physician and we collectively agreed cardiac catheterization would be most appropriate for this lady Informed consent was obtained prior to the procedure. COMPLICATIONS: None ESTIMATED BLOOD LOSS: Less than 10 ml. TECHNIQUE: One percent lidocaine used to anesthetize the right anterior aspect of the wrist. The right radial artery was accessed via the Seldinger technique. A 6 Albanian sheath was placed in the right radial artery. 2.5 mg of verapamil, 800 mcg of nitroglycerin and 5000 U Heparin were given through the arterial sheath. The Ragini catheter was also used to perform left heart catheterization and left ventriculography. At the end of the procedure the patient was transferred to the post-op holding area in stable condition for arterial sheath removal. ANGIOGRAPHIC RESULTS: 1. The left main artery normal 2. The left anterior descending artery normal 3. The circumflex artery normal 4. The right coronary artery dominant normal 5. The REBOLLAR ventriculogram reveals normal 6. The left ventricular end-diastolic pressure normal 10 mmHg IMPRESSION: 1. Normal coronary arteries 2. Normal left ventricular end-diastolic pressure 3. Normal left ventricular function PLAN: 1. Treatment of noncardiac chest pain 2. Tobacco cessation 3. Anxiety relief per primary care physician 4. Risk factor modification
--- NOTE | 2017-05-10 18:16 | RADIOLOGY REPORT PS360 ---
PROCEDURE: 2-D M-mode and color Doppler study INDICATIONS FOR THE TEST: Chest pain X COPD Heart Murmur Tobacco SmokingX Palpitations Fatigue Syncope Edema Hypertension Diabetes Mellitus Rheumatic Fever SOB BRUNNER Obesity Hyperlipidemia Family History HD Additional History PATIENT INFORMATION HEIGHT: 66 WEIGHT:180 GENDER: Female B/P:155/95 2-D/M-MODE INTERPRETATION: 2-D MEASUREMENTS OBSERVED VALUES IN CMS Right Ventricular Dimension (RVDd) 2.4 Interventricular Septum (Thickness)(IVsd) 1.0 Left Ventricular Internal Dimensions(LVIDd) 4.2 Left Ventricular Posterior Wall (Thickness)(LVPWd) .9 Aortic Root 2.8 Aortic Cusp Separation 2.2 Left Atrial Dimensions (LAD) 3.5 2D 1. Left atrium is normal size, left ventricle is normal size, visually estimated ejection fraction of 55% with no obvious regional wall motion abnormality. 2. The right atrium and right ventricle are relatively normal size and function. 3. The aortic, mitral and tricuspid valve are grossly normal. 4. The pulmonic valve is poorly visualized. 5. No significant pericardial effusion noted. DOPPLER INTERROGATION: Doppler interrogation of the aortic, mitral and tricuspid valvular presence of trace mitral and tricuspid regurgitation, tricuspid and jet velocity insufficient for calculation of the right ventricular systolic pressure, diastolic parameters are within normal range. CONCLUSION: 1. Normal left ventricular size, preserved left ventricular systolic function, visually estimated ejection fraction 55% with no obvious regional wall motion abnormality, diastolic parameters are within normal range. 2. Trace mitral and tricuspid regurgitation. 3. No significant pericardial effusion noted.
--- OUTSIDE RECORDS SUMMARY | 2017-05-12 07:30 | External Medical Summary Rpt | CCD ---
Demographics Preferred Language Jordanian Marital Status Unknown Jewish Affiliation Unknown Race Unknown Ethnic Group Unknown Author Author , PIEDAD HERBERT Address Unknown Phone Immunization No patient found.
--- OUTSIDE RECORDS SUMMARY | 2017-05-12 07:30 | External Medical Summary Rpt | CCD ---
Author Author [employer] Organization [employer] Address Unknown Phone Unavailable Purpose Continuity of Care Document - through 2016
--- OUTSIDE RECORDS SUMMARY | 2017-05-12 07:30 | External Medical Summary Rpt | CCD ---
Author Author , SHLOMO Organization [facility] Address Unknown Phone [email or web address] Purpose Continuity of Care Document - 04-26-2017 through 2016 Problems Code Diagnosis DOS Provider Status J06.9 ACUTE UPPER RESPIRATORY INFECTION, UNSPECIFIED R05 COUGH R07.89 OTHER CHEST PAIN Z20.818 CONTACT W AND EXPOSURE TO OTH BACT COMMUNICABL E DISEASES Z72.0 TOBACCO USE Results Labs Lab Lab Date Result Refere Interp Status Commen Order Detail nces retati t Range on Streptococcus pyogenes Ag [Presence] in Unspecified specimen (04-26-2017 09:51) Strepto NOT NOTDETE complet coccus [address] ed pyogene 09:51 D s Ag [Presen ce] in Unspeci fied specime n
--- OUTSIDE RECORDS SUMMARY | 2017-05-12 07:30 | External Medical Summary Rpt ---
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 Name Role Phone KAITLIN, (REF) PCP [phone] Encounter [facility] [id number] Date(s): 04/30/17 - 05/01/17 [facility] [address] [place] Ortiz [address]- [phone] Discharge Diagnosis: Atypical chest pain Discharge Disposition: OP Self Care or Home Attending Physician: ARTURO ZAMUDIO DO Admitting Physician: ARTURO ZAMUDIO DO Referring Physician: ARTURO ZAMUDIO DO Reason for Visit CP Vital Signs Most recent 1 2 3 to oldest [Reference Range]: Temperature Oral Source (04/30/17 8:45 PM) Temperature Fahrenheit Mode (04/30/17 8:45 PM) Temperature, 97.7 Deg F Fahrenheit (04/30/17 8:45 PM) [96.8-99.7 Deg F] Clinical 36.5 Deg C Temperature, (04/30/17 8:45 PM) C Peripheral 104 bpm Pulse Rate *HI* [60-100 bpm] (04/30/17 8:45 PM) Heart Rate 70 bpm 72 bpm (05/01/17 72 bpm (04/30/17 Monitored (05/01/17 2:02 AM) 12:22 AM) 10:45 PM) [60-100 bpm] Respiratory 14 Breaths/Min 16 Breaths/Min 17 Breaths/Min Rate [14-20 (05/01/17 2:02 AM) (05/01/17 12:22 (04/30/17 10:45 Breaths/Min] AM) PM) Blood 99/52 mmHg 109/55 mmHg 111/56 mmHg Pressure (05/01/17 2:02 AM) (05/01/17 12:22 (04/30/17 10:45 [90-140/60-9 AM) PM) 0 mmHg] Mean 68 mmHg 73 mmHg (05/01/17 74 mmHg (04/30/17 Arterial (05/01/17 2:02 AM) 12:22 AM) 10:45 PM) Pressure (MAP) Mean 71 76 (05/01/17 12:22 76 (04/30/17 10:45 Arterial (05/01/17 2:02 AM) AM) PM) Pressure (MAP)-BMDI Oxygen 97 % 97 % (05/01/17 97 % (04/30/17 Saturation (05/01/17 2:02 AM) 12:22 AM) 10:45 PM) [94-100 %] Oxygen Room air Room air (05/01/17 Room air Therapy Mode (05/01/17 2:02 AM) 12:22 AM) (04/30/17 9:29 PM) Height Measured Source (04/30/17 8:45 PM) Height Entry Seward Format (04/30/17 8:45 PM) Height/Lengt 5 ft h, LUXEMBOURGER (04/30/17 8:45 PM) (ft) Height/Lengt 6 Inch h LUXEMBOURGER (04/30/17 8:45 PM) CLINICALHEIG 167.64 cm HT (04/30/17 8:45 PM) Weight Critical Source, ED estimated dosing weight (04/30/17 8:45 PM) Weight Entry Seward Format (04/30/17 8:45 PM) Weight 180 lb Korean lb (04/30/17 8:45 PM) CLINICALWEIG 81.82 kg HT (04/30/17 8:45 PM) Body Surface 1.91 m2 Area (BSA) (04/30/17 8:45 PM) Body Mass 29.1 kg/m2 Index (BMI) *HI* [19-24 (04/30/17 8:45 PM) kg/m2] [place] Body 58.88 kg Weight (04/30/17 8:45 PM) Problem List No data available for this section Allergies, Adverse Reactions, Alerts No Known Allergies Medications aspirin (Aspirin Enteric Coated 325 mg oral delayed release tablet) azithromycin (azithromycin 250 mg oral tablet) 2 Tablet(s) Oral One Time Order. Non Formulary (Misc Prescription) Results GENERAL CHEMISTRY Most recent 1 2 to oldest [Reference Range]: Sodium Level 140 mmol/L [136-146 (04/30/17 9:22 PM) mmol/L] Potassium 4.1 mmol/L Level (04/30/17 9:22 PM) [3.5-5.1 mmol/L] Chloride 109 mmol/L Level (04/30/17 9:22 PM) [102-112 mmol/L] Carbon 24 mmol/L Dioxide (04/30/17 9:22 PM) Level [21-32 mmol/L] Anion Gap 11 [9-20] (04/30/17 9:22 PM) Glucose 105 mg/dL Level (04/30/17 9:22 PM) [74-106 mg/dL] Blood Urea 8 mg/dL Nitrogen (04/30/17 9:22 PM) [7-22 mg/dL] Creatinine 0.80 mg/dL Level (04/30/17 9:22 PM) [0.55-1.02 mg/dL] eGFR 96 mL/min/1.73m2 [>=60 (04/30/17 9:22 PM) mL/min/1.73m 2] eGFR 79 mL/min/1.73m2 NonAfrican (04/30/17 9:22 PM) [>=60 mL/min/1.73m 2] Bun/Creatini 10.0 ne (04/30/17 9:22 PM) [8.0-20.0] Calcium 8.4 mg/dL Level *LOW* [8.5-10.1 (04/30/17 9:22 PM) mg/dL] Protein 7.2 Gram/dL Total (04/30/17 10:54 PM) [6.4-8.2 Gram/dL] Albumin 3.6 Gram/dL Level (04/30/17 10:54 PM) [3.4-5.0 Gram/dL] Globulin 3.6 Gram/dL [1.5-4.5 (04/30/17 10:54 PM) Gram/dL] A/G Ratio 1.0 [1.1-2.5] *LOW* (04/30/17 10:54 PM) Bilirubin 0.3 mg/dL Total (04/30/17 10:54 PM) [0.2-1.3 mg/dL] Bilirubin 0.1 mg/dL Direct (04/30/17 10:54 PM) [0.0-0.2 mg/dL] Alk Phos 97 Units/Liter [27-136 (04/30/17 10:54 PM) Units/Liter] AST [5-37 13 Units/Liter Units/Liter] (04/30/17 10:54 PM) ALT [12-78 22 Units/Liter Units/Liter] (04/30/17 10:54 PM) CARDIAC SPECIFIC MARKERS Most recent 1 2 to oldest [Reference Range]: Troponin I <0.015 ng/mL <0.015 ng/mL Ultra (04/30/17 10:54 PM) (04/30/17 9:22 PM) [0.015-0.045 ng/mL] ProBNP 34 pg/mL [0-125 (04/30/17 10:54 PM) pg/mL] HEMATOLOGY Most recent 1 2 to oldest [Reference Range]: WBC 9.4 K/uL [4.0-10.0 (04/30/17 9:22 PM) K/uL] RBC 4.15 Million/uL [3.93-5.22 (04/30/17 9:22 PM) Million/uL] Hgb 13.8 g/dL [11.2-15.7 (04/30/17 9:22 PM) g/dL] Hct 40.1 % [34.1-44.9 (04/30/17 9:22 PM) %] MCV 96.6 fL [79.0-94.8 *HI* fL] (04/30/17 9:22 PM) MCH 33.3 pg [25.6-32.2 *HI* pg] (04/30/17 9:22 PM) MCHC 34.4 Gram/dL [32.2-36.5 (04/30/17 9:22 PM) Gram/dL] Platelet 306 K/uL Count (04/30/17 9:22 PM) [163-369 K/uL] MPV 10.0 fL [9.4-12.4 (04/30/17 9:22 PM) fL] RDW 13.1 % [11.6-14.4 (04/30/17 9:22 PM) %] Neut % 53.4 % [34.0-71.0 (04/30/17 9:22 PM) %] Neut # 5.01 K/uL [1.56-6.13 (04/30/17 9:22 PM) K/uL] Lymph % 37.2 % [19.3-53.1 (04/30/17 9:22 PM) %] Lymph # 3.49 x10(3)/uL [1.00-3.90 (04/30/17 9:22 PM) x10(3)/uL] [place] % 6.9 % [3.0-9.0 %] (04/30/17 9:22 PM) [place] # 0.65 K/uL [0.16-1.00 (04/30/17 9:22 PM) K/uL] Eos % 1.2 % [0.0-7.0 %] (04/30/17 9:22 PM) Eos # 0.11 x10(3)/uL [0.00-0.80 (04/30/17 9:22 PM) x10(3)/uL] Baso % 1.0 % [0.0-1.5 %] (04/30/17 9:22 PM) Baso # 0.09 x10(3)/uL [0.00-0.20 (04/30/17 9:22 PM) x10(3)/uL] Slide Review No (04/30/17 9:22 PM) IG# 0.03 x10(3)/uL [0.00-0.05 (04/30/17 9:22 PM) x10(3)/uL] IG% 0.30 % [0.00-0.60 (04/30/17 9:22 PM) %] COAGULATION Most recent 1 2 to oldest [Reference Range]: D Dimer See Comment 1 Quant *NA* [0.00-0.58] (04/30/17 10:54 PM) 1Result Comment: DDimer result = 0.22 mg/L Immunizations No data available for this section Procedures No data available for this section Social History No data available for this section Assessment and Plan No data available for this section Hospital Discharge Instructions Patient EducationNonspecific Chest Pain
--- OUTSIDE RECORDS SUMMARY | 2017-05-12 07:30 | External Medical Summary Rpt ---
Author Author [facility] Organization [facility] Address Unknown Phone Unavailable Care Team Providers Care Piercing Mill Operator Name Role Phone KAITLIN, (REF) PCP [phone] Encounter [facility] [id number] Date(s): 04/30/17 - 05/01/17 [facility] [address] [place] [address]- Discharge Diagnosis: Atypical chest pain Discharge Disposition: [...] Measured Source (04/30/17 8:45 PM) Height Entry Holmes Format (04/30/17 8:45 PM) Height/Lengt 5 ft h, LEBANESE (04/30/17 8:45 PM) (ft) Height/Lengt 6 Inch h LEBANESE (04/30/17 8:45 PM) CLINICALHEIG 167.64 cm HT (04/30/17 8:45 PM) Weight Critical Source, ED estimated dosing weight (04/30/17 8:45 PM) Weight Entry Holmes Format (04/30/17 8:45 PM) Weight 180 lb Mongolian lb (04/30/17 8:45 PM) CLINICALWEIG 81.82 kg HT (04/30/17 8:45 PM) Body Surface 1.91 m2 Area (BSA) (04/30/17 8:45 PM) Body Mass 29.1 kg/m2 Index (BMI) *HI* [19-24 (04/30/17 8:45 PM) kg/m2] [place] Body 58.88 kg Weight (04/30/17 8:45 PM) [...] 3.49 x10(3)/uL [1.00-3.90 (04/30/17 9:22 PM) x10(3)/uL] [place] % 6.9 % [3.0-9.0 %] (04/30/17 9:22 PM) [place] # 0.65 K/uL [0.16-1.00 (04/30/17 9:22 PM) [...]
--- OUTSIDE RECORDS SUMMARY | 2017-05-12 07:30 | External Medical Summary Rpt ---
Author Author [employer]EDAD Villela, [employer] Organization [employer] Address Unknown Phone Unavailable Results Fibrin D-dimer FEU [Mass/volume] in Platelet poor plasma Observa Value Referen Units Interpr Notes Date tion ce etation Range Fibrin 0 - 400 ng/mL Normal The Apr 26 D-dimer D-Dimer 2016 FEU values 11:25 AM [Mass/vol are ume] in presented Platelet in units poor of plasma mass(ng/m L) ofD-Dimer units(DDU ).This test has been FDA approved as an aid in the assessmen tand evaluatio n of suspected DIC, and thromboem bolic eventsinc luding PE and DVT. However, it does not have approvalf or cut-off values for the exclusion of these condition s. CBC W Auto Differential panel in Blood Observa Value Referen Units Interpr Notes Date tion ce etation Range Granulocy 1.8 - 7.8 K/mm3 Normal No Apr 26 toy informati 2016 [#/volume on in 11:25 AM ] in source Blood by data Automated count Granulocy 37.0 - % Normal No Apr 26 toy/100 80.0 informati 2016 leukocyte on in 11:25 AM s in source Blood by data Automated count Hematocri 37.0 - % Normal No Apr 26 t [Volume 47.0 informati 2016 on in 11:25 AM Fraction] source of Blood data Hemoglobi 12.2 - g/dL Normal No Apr 26 n 16.2 informati 2016 [Mass/vol on in 11:25 AM ume] in source Blood data Lymphocyt 0.7 - 4.5 K/mm3 Normal No Apr 26 es informati 2016 [#/volume on in 11:25 AM ] in source Unspecifi data ed specimen by Automated count Lymphocyt 10 - 50.0 % Normal No Apr 26 es informati 2016 [#/volume on in 11:25 AM ] in source Unspecifi data ed specimen by Automated count Erythrocy 27 - 31.2 pg High No Apr 26 te mean informati 2017 corpuscul on in 11:25 AM ar source hemoglobi data n [Entitic mass] Erythrocy 31.8 - g/dl Normal No Sep 28 te mean 35.4 inform2016 corpuscul on in 11:25 AM ar source hemoglobi data n concentra tion [Mass/vol ume] by Automated count Erythrocy 82.2 - fL Normal No Sep 28 te mean 97.8 informati 2016 corpuscul on in 11:25 AM ar volume source [Entitic data volume] by Automated count Monocytes 0.1 - 1.0 K/mm3 Normal No Mar 28 informati 2016 [#/volume on in 11:25 AM ] in source Blood by data Automated count Monocytes 1.7 - 9.3 % Normal No Sep 28 /100 informati 2017 leukocyte on in 11:25 AM s in source Blood by data Automated count Platelets 142 - 424 K/mm3 Normal No Sep informati 2016 [#/volume on in 11:25 AM ] in source Blood data Erythrocy 4.2 - 5.4 M/mm3 Normal No Sep 28 toy informati 2016 [#/volume on in 11:25 AM ] in source Amniotic data fluid Erythrocy 11.5 - % Normal No Sep 28 te 17.5 informati 2016 distribut on in 11:25 AM ion width source [Entitic data volume] by Automated count Leukocyte 4.8 - K/mm3 High No Sep 28 s 10.8 informati 2016 [#/volume on in 11:25 AM ] in source Blood data Streptococcus pyogenes Ag [Presence] in Unspecified specimen Observa Value Referen Units Interpr Notes Date tion ce etation Range Strepto NOT NOTDETE No No LOT # Sep 28 coccus DETECTE CTED informa informa N/A EXP 2017 pyogene D tion in tion in DATE 9:51 AM s Ag source source N/A [Presen data data ce] in Unspeci fied specime n
--- OUTSIDE RECORDS SUMMARY | 2017-05-12 07:30 | External Medical Summary Rpt | CCD ---
Author Author , SHLOMO Organization [facility] Address Unknown Phone [email or web address] Purpose Continuity of Care Document - 04-26-2017 [...]
--- OUTSIDE RECORDS SUMMARY | 2017-05-12 07:30 | External Medical Summary Rpt | CCD ---
Demographics Preferred Language Beninese Marital Status Unknown Mandaeism Affiliation Unknown Race Unknown Ethnic Group Unknown Author Author , PIEDAD HERBERT Address Unknown Phone Immunization No patient found.
== END 2017-05-09 18:15 | disposition home or self-care (01) ==
LOC: ER 22:37 → 2ND 23:55 → ER 23:55 → 2ND 05-09 00:42
PROVIDERS: Emergency Medicine; Internal Medicine
PROC: B2111ZZ Fluoroscopy of Multiple Coronary Arteries using Low Osmolar Contrast (ICD-10-PCS; 2017-05-09)
PROC: B2151ZZ Fluoroscopy of Left Heart using Low Osmolar Contrast (ICD-10-PCS; 2017-05-09)
PROC: 4A023N7 Measurement of Cardiac Sampling and Pressure, Left Heart, Percutaneous Approach (ICD-10-PCS; principal; 2017-05-09 11:30)
DX: R07.9 Chest pain, unspecified (principal); F41.9 Anxiety disorder, unspecified; Z72.0 Tobacco use; I10 Essential (primary) hypertension
CPT/HCPCS: C1725; C1769; G0378; J1644; J2405; Q9967

== ENCOUNTER → 2017-06-05 | Outpatient (CLI) | payer BC ==
[~2017-06-05] MED LIST changes: +AMLO5TAB PO; +ASPIRIN CHILDRE81 M1 PO; +GOOD NEIGHBOR P20 M1 PO
--- NOTE | 2017-06-05 09:18 | RADIOLOGY REPORT PS360 ---
US RUQ-(ABD LTD)1ORGAN/QUAD/FU HISTORY: Chest pain, cholelithiasis, abnormal CT scan CALCULUS OF GALLBLADDER ORDERING PHYSICIAN: Kendy LÓPEZ PATIENT AGE: 42 years COMPARISON: CT scan of 05/29/2017 FINDINGS: PANCREAS:Unremarkable. No obvious mass or abnormal fluid collection. No ductal dilatation LIVER:No focal liver lesions demonstrated. Homogeneous echogenicity. No intrahepatic biliary ductal dilatation evident RIGHT KIDNEY:Unremarkable. Normal size and echogenicity. No hydronephrosis GALLBLADDER:Large gallstone is present measuring up to 2.6 cm as noted on the CT scan. No pericholecystic fluid, wall thickening, or biliary dilatation. Common bile duct is 3 mm. IMPRESSION: Cholelithiasis. No biliary dilatation or pericholecystic fluid
== END ==
LOC: RAD 08:15
DX: K80.20 Calculus of gallbladder without cholecystitis without obstruction (principal)

== ENCOUNTER → 2017-06-14 | Outpatient (CLI) | payer BC ==
--- NOTE | 2017-06-14 12:06 | RADIOLOGY REPORT PS360 ---
UGI ESOPHAGUS W/O AIR HISTORY: DYSPHAGIA, REFLUX ORDERING PHYSICIAN: KATRIN VIZCARRA MD PATIENT AGE: 42 years COMPARISON: None FINDINGS: The esophagus, stomach, and duodenum have an unremarkable appearance. There is no evidence of hiatal hernia. No ulcer or mass evident. No mucosal abnormalities apparent. There is normal peristalsis. The duodenal C-loop is nondisplaced. FLUOROSCOPY TIME : 1 minute and 40 seconds. IMPRESSION: Negative upper GI
== END ==
LOC: RAD 06-12 10:00
DX: R13.10 Dysphagia, unspecified (principal); K21.9 Gastro-esophageal reflux disease without esophagitis

== ENCOUNTER → 2017-06-19 | Outpatient (CLI) | payer BC ==
[2017-06-19 14:21] LABS: BILIRUBIN, INDIRECT 0.36 mg/dL (0-0.9)
== END ==
LOC: LAB 10:46
PROVIDERS: Surgery
DX: K80.10 Calculus of gallbladder with chronic cholecystitis without obstruction (principal)

== ENCOUNTER 2017-07-06 08:39 | Day surgery (SDC) | payer BC ==
[~2017-07-06] VITALS: Ht 167.6 cm; Wt 77.1 kg
--- NOTE | 2017-07-06 11:54 | Operative Note ---
Surgeon/Diagnoses Surgeon/Hand Clerical Verifier(s) Date of procedure: 07/06/17 Surgeon: MD Ian Vizcarra Diagnoses Pre-op diagnosis: Chronic calculus cholecystitis Post-op diagnosis Same Procedure Procedure Procedure: Laparoscopic cholecystectomy Indications: GUILLERMO VILA is a 42 year-old Female with a history of postprandial nausea, epigastric pain, RIGHT upper quadrant and shoulder pain, as well as radiographic evidence of chronic calculus cholecystitis. Findings: Severe pericholecystic fat stranding and moderate wall thickening Procedure Description: After informed consent was obtained, the patient was taken to the operating room and placed in the supine position. General anesthesia was induced and the patient's abdomen was prepped and draped in a sterile fashion. After infiltration with local anesthetic an infraumbilical incision was made. A Veress needle was placed in position. The abdomen was insufflated. A 5 mm optical trocar was placed in position. Under direct visualization, 2 additional 5 mm trocars were placed in the RIGHT upper quadrant. A 12 mm trocar was placed in the subxiphoid position. The gallbladder was elevated up and over the liver margin. Fairly severe pericholecystic fat stranding and moderate wall thickening were noted. A combination of careful blunt dissection and harmonic carroll were utilized to free the anterior omentum. The tissue around the cystic duct was carefully dissected. Clips were placed proximally and the duct was transected at the infundibulum utilizing harmonic carroll. Harmonic carroll were then utilized to remove the gallbladder from the liver margin. The gallbladder was placed in a retrieval bag and removed through the subxiphoid trocar site. The RIGHT upper quadrant was thoroughly irrigated. No active bleeding or bile leak was noted. The fascia at the subxiphoid trocar site was reapproximated utilizing the doretha- close device. Pneumoperitoneum was released as the remaining trocars were removed. All wounds were irrigated and skin was closed with 4-0 Monocryl in a subcuticular fashion. Steri-Strips were applied and the patient's anesthetic agents were reversed. After extubation, the patient was transferred to recovery in stable condition. Laparoscopic EBL (ml): 15 Anesthesia: GETA Complications: No immediate Specimens: Gallbladder and contents Disposition Disposition: Stable to recovery from where she will be discharged home. She will follow-up in 1-2 weeks. at 1156
--- NOTE | 2017-07-06 12:01 | Anesthesia Record ---
Anesthesia Record Part II Discharge time: 1230 Destination: Same day surgery PACU nurse assessment review? Yes Patient is: Awake, Stable Anesthesia complications? No at 1201
--- NOTE | 2017-07-06 12:01 | Anesthesia Record ---
Anesthesia Record Part I Total IV fluids: 500 EBL (ml): 0 Urine Output: 0 B/P: 148/68 % SaO2: 96 Pulse: 100 Resps: 12 Temp: 98 Patient is: Awake, Stable Stable to PACU at: 1200 at 1201
[2017-07-06 14:18] VITALS: BP 122/64
== END 2017-07-06 13:33 | disposition home or self-care (01) ==
LOC: SDC 08:39
PROVIDERS: Surgery
PROC: 0FT44ZZ Resection of Gallbladder, Percutaneous Endoscopic Approach (ICD-10-PCS; principal; 2017-07-06 10:15)
DX: K80.10 Calculus of gallbladder with chronic cholecystitis without obstruction (principal)